=== PATIENT | female | born 1980 | race Caucasian/White ===

== ENCOUNTER 2024-09-24 09:18 | Outpatient (OUT) | payer BC, SELFPAY ==
[2024-09-24 09:55] LABS: Basophils Percent Auto 0.6 % (0.2-2.0); Eosinophils Absolute Auto 0.1 10^3/uL (0.0-0.7); Eosinophils Percent Auto 1.9 % (0.9-7.0); Hematocrit 44.1 % (36.0-48.0); Hemoglobin 14.7 g/dL (12.0-16.0); Immature Granulocytes Abs Auto 0.02 10^3/uL (0.00-0.03); Immature Granulocytes Pct Auto 0.3 % (0.0-0.5); Lymphocytes Absolute Auto 2.4 10^3/uL (1.2-3.8); Lymphocytes Percent Auto 34.5 % (20.5-60.0); Mean Corpuscular HGB Conc 33.3 g/dL (29.9-35.2); Mean Platelet Volume 10.5 fL (9.5-13.5); Monocytes Absolute Auto 0.5 10^3/uL (0.3-0.8); Monocytes Percent Auto 6.6 % (1.7-12.0); Neutrophils Absolute Auto 3.8 10^3/uL (1.4-6.5); Neutrophils Percent Auto 56.1 % (43.0-75.0); Platelet Count 273 10^3/uL (150-450); Red Blood Count 4.74 10^6/uL (4.20-5.40); Red Cell Distribution Width 13.3 % (11.0-15.0); White Blood Count 6.8 10^3/uL (4.0-11.0)
[2024-09-24 11:35] LABS: Alanine Aminotransferase 38 U/L (14-59); Albumin Level 3.6 g/dL (3.4-5.0); Alkaline Phosphatase 74 U/L (46-116); Anion Gap 10.3; Aspartate Amino Transferase 19 U/L (15-37); BUN Creatinine Ratio 12.4; Bilirubin Total 1.4 mg/dL (0.2-1.0); Calcium 8.8 mg/dL (8.5-10.1); Carbon Dioxide 28.7 mmol/L (21.0-32.0); Chloride 107 mmol/L (98-107); Cholesterol 192 mg/dL (<=200); Estimated GFR (African America >60 (>=60 mL/min/1.73m^2); Estimated GFR (Non-African Ame >60 (>=60 mL/min/1.73m^2); Globulin 3.5 g/dL; Glucose 104 mg/dL (74-106); HDL Cholesterol 48 mg/dL (40-60); LDL Cholesterol Calculated 121.8 mg/dL; Sodium 142 mmol/L (136-145); TSH W/ REFLEX FT4 2.063 uIU/mL (0.358-3.740); Total Protein 7.1 g/dL (6.4-8.2); Triglycerides 111 mg/dL (<=150); VLDL CHOLESTEROL 22.2 mg/dL
== END 2024-09-24 09:19 | disposition home or self-care (01) ==
PROVIDERS: PCP Physician Assistant; Visit Provider Physician Assistant
DX: Z00.00 Encounter for general adult medical examination without abnormal findings (principal); K51.00 Ulcerative (chronic) pancolitis without complications; R63.5 Abnormal weight gain
CPT/HCPCS: 36415; 80053; 80061; 84443; 85025

== ENCOUNTER 2025-05-24 12:18 | Outpatient (OUT) | payer BC, SELFPAY ==
--- OUTSIDE RECORDS SUMMARY | 2025-05-15 16:15 | XMS_ITS | Encounter Summary ---
Author Organization [facility] Healthcare Address [address] [place] [address] Care Team Providers Care Transit Police Officer Name Role Phone Cory Ortega MD Primary Care Provider [phone] Reason for Visit * ReasonCommentsFollow-upPt is here today for Fuv Rt ankle pain, she states swelling has improved, she has good days and baddays. She does not like the ASO, feels too tight around ankle area, but too bunched up in the heel area. Completed the oral steroid without issues, but was unable to take the anti- inflammatory due toupset stomach and blood in stool, caused colitis flare. SS: 10 Encounter Details DateTypeDepartmentCare Team (Latest Contact Info)Ywscpgevqra70/13/2025 4:15 PM EDTOffice Visit [facility] [address] [place] [phone] Jose Martin Stanley, DPM [address] [place], [place] [phone] Posterior tibial tendon dysfunction, right (Primary Dx); Posterior tibial tendinitis of right lower extremity; Other synovitis and tenosynovitis, right ankle and foot; Onychomycosis; Right foot pain Social History Tobacco UseTypesPacks/DayYears UsedDateSmoking Tobacco: FormerCigarettes0.520 2021 - 1991Smokeless Tobacco: Never Tobacco Cessation:Counseling Given: Not Answered Comments:Last smoked : 1-5 years Alcohol UseStandard Drinks/WeekCommentsYes2 (1 standard drink = 0.6 oz pure alcohol)Caffeine intake : 1-2 cups per day [id number] Health LiteracyAnswerDate RecordedHow often do you need to have someone help you when you read instructions, pamphlets, or other written material from your doctor or pharmacy? Never09/16/2024Humiliation, Afraid, Rape, and Kick questionnaireAnswerDate RecordedWithin the last year, have you been afraid of your partner or ex-partner?No04/21/2023Within the last year, have you been humiliated or emotionally abused in other ways by your partner or ex-partner?No04/21/2023 Within the last year, have you been kicked, hit, slapped, or otherwise physically hurt by your partner or ex-partner?No04/21/2023Within the last year, have you been raped or forced to have any kind of sexual activity by your part ner or ex-partner?No04/21/2023Social Connection and Isolation PanelAnswerDate RecordedIn a typical week, how many times do you talk on the phone with family, friends, or neighbors?Twice a week09/16/2024How often do you get together with friends or relatives?Once a week09/16/2024How often do you attend yazdanism or congregational services?Never09/16/2024Do you belong to any clubs or organizations such as yazdanism groups, unions, fraternal or athletic groups, or school groups?No 09/16/2024How often do you attend meetings of the clubs or organizations you belong to?Patient nvmdfyeh43/14/2025re you , , , , never , or living with a partner?Nhmjsml0709/16/2024UDIT-C AnswerDate RecordedQ1: How often do you have a drink containing alcohol?2-4 times a month09/20/2024Q2: How many drinks containing alcohol do you have on a typical day when you are drinking?1 or Q3: How often do you have six or more drinks on one occasion?Never09/20/2024Overall Financial Resource Strain (CARDIA)AnswerDate RecordedHow hard is it for you to pay for the very basics like food, housing, medical care, and heating?Not hard at all09/16/2024PHQ-2 AnswerDate RecordedPatient Health Questionnaire-2 [facility]byu058Final[facility] [place] of Occupational Health - Occupational Stress QuestionnaireAnswerDate RecordedDo you feel stress - tense, restless, nervous, or anxious, or unable to sleep at night because yourmind is troubled all the time - these days?Very much 09/16/2024Exercise Vital SignAnswerDate RecordedOn average, how many days per week do you engage in moderate to strenuous exercise (like a brisk walk)?2 days 09/16/2024On average, how many minutes do you engage in exercise at this level? 20 min09/16/2024Hunger Vital SignAnswerDate RecordedWithin the past 12 months, you worried that your food would run out before you got the money to buymore. Never true09/16/2024Within the past 12 months, the food you bought just didn't last and you didn't have money to get more.Never true09/16/2024PRAPARE - TransportationAnswerDate RecordedIn the past 12 months, has lack of transportation kept you from medical appointments or from getting medications?No 09/16/2024In the past 12 months, has lack of transportation kept you from meetings, work, or from getting things needed for daily living?No09/16/2024 Housing Stability Vital SignAnswerDate RecordedIn the last 12 months, was there a time when you were not able to pay the mortgage or rent on time?No04/21/2023In the last 12 months, how many places have you lived?In the last 12 months, was there a time when you did not have a steady place to sleep or slept in [facility] (including now)?No04/21/2023Housing Stability Vital SignAnswerDate RecordedIn the last 12 months, was there a time when you were not able to pay the mortgage or rent on time?No09/16/2024Number of Times Moved in the Last Year Not on file09/16/2024t any time in the past 12 months, were you homeless or living in a [place] (including now)?No09/16/2024CommentsUnknownSex and Gender InformationValueDate RecordedSex Assigned at OgswtCbqygm38/06/2023 9:15 AM EDTLegal ItePfpppm19/15/2023 7:22 PM EDTGender HeslhmbkVjimgc68/06/2023 9:15 AM EDTSexual YzrjdhizjubDeodrvzk20/06/2023 9:15 AM EDTdocumented as of this encounter Last Filed Vital Signs Vital SignReadingTime TakenCommentsBlood Pressure--Pulse--Temperature-- Respiratory Rate--Oxygen Saturation--Inhaled Oxygen Concentration--Ipldcl468 kg (251 lb)05/15/2025 4:09 PM CZJEiiqia432.7 cm (5' 8 )05/15/2025 4:09 PM EDTBody Mass Index38.161 4:09 PM EDTdocumented in this encounter Progress Notes * Jose Martin Senait Stanley, DPM - 05/15/2025 4:15 PM EDT Images from the original note were not included. Subjective Patient ID: Bharati Valerio is a 45 y.o. female who presents for Follow-up (Pt is here today for Fuv Rt ankle pain, she states swelling has improved, she has good days and bad days. She does not like the ASO, feels too tight around ankle area, but too bunched up in the heel area. Completed the oral steroid without issues, but was unable to take the anti-inflammatory due to upset stomach and blood in stool, caused colitis flare. /SS: 10). HPI This is an established patient who presents to clinic for follow up evaluation of posterior tibial tendinopathy in the setting of valgus deformity of the right lower extremity. Patient has been usingan ASO brace consistently for about a month. She states it is very uncomfortable to wear because itcauses a lot of restriction with her ankle and foot. Patient states that overall her symptoms have improved but some days she has continued severe pain. Additionally patient is concerned about possible nail fungus primarily affecting the right hallux. It has been present for years. She has tried various topical options without improvement. Review of Systems Constitutional: Positive for activity change. Negative for appetite change. Respiratory: Negative for chest tightness and shortness of breath. Cardiovascular: Negative for chest pain. Musculoskeletal: Positive for arthralgias and gait problem. Skin: Negative for color change and wound. Neurological: Negative for weakness and numbness. Psychiatric/Behavioral: Negative for agitation and behavioral problems. Hematological: Does not bruise/bleed easily. Endocrine: Negative for cold intolerance and heat intolerance. Allergic/Immunologic: Negative for immunocompromised state. Past medical History Past Medical History: Diagnosis Date Afib ([facility]) 04/22/2023 Anxiety Arthritis Carpal tunnel syndrome 06/02/2019 Cervical ca ([facility]) 04/22/2023 Colitis Depression Elevated LDL cholesterol level Headache History of MRI 08/14/2020 MRI of foot shows plantar facsiltis Tear of meniscus of knee 1997, 2005 Urinary tract infection Medications Current Outpatient Medications: Ibuprofen-Acetaminophen 125-250 MG tablet per tablet, Take 1 tablet by mouth every 8 (eight) hours if needed (Pain), Disp: , Rfl: predniSONE (Deltasone) 10 MG tablet, Take twice daily for 5 days, then take once daily for 5 days.,Disp: 15 tablet, Rfl: 0 Allergies Topiramate and Daypro [oxaprozin] Past Surgical History Past Surgical History: Procedure Laterality Date ANTERIOR CRUCIATE LIGAMENT REPAIR BACK SURGERY CERVICAL BIOPSY W/ LOOP ELECTRODE EXCISION SECTION, LOW TRANSVERSE [id number] CHOLECYSTECTOMY COLONOSCOPY 02/27/2021 COLONOSCOPY KNEE SURGERY Right RT KNEE ACL- DR NINO KNEE SURGERY Right DR FAULKNER LUMBAR DISC SURGERY 2011 DR SARMIENTO Family History Family History Problem Relation Name Age of Onset Polycystic ovary syndrome Daughter Bipolar disorder Daughter ADD / ADHD Daughter PTSD Daughter Objective Physical Exam Constitutional: Appearance: She is obese. Comments: Presents to clinic ambulating unassisted with ASO brace on the right foot. HENT: Head: Normocephalic and atraumatic. Cardiovascular: Pulses: Normal pulses. Pulmonary: Effort: Pulmonary effort is normal. No respiratory distress. Abdominal: Palpations: There is no mass. Musculoskeletal: Cervical back: No rigidity. Comments: Weightbearing examination reveals pes planovalgus deformity. She is able to perform a double heel rise test which invert the hindfoot. Right foot: Today there is some tenderness to palpation of the plantar naviculocuneiform joint. I can not recreate any tenderness to palpation over the posterior tibial tendon and spring ligament. Inversion, eversion of the subtalar joint minimally painful with forced inversion. No deltoid tenderness. Muscle strength 4/5 for inversion, 5/5 for remaining quadrants. Ankle dorsiflexion-5 degrees with the knee extended, flexed. Increased excursion of the 1st ray especially with dorsiflexion. Very mild medial eminence with very slight lateral deviation of the hallux. Prominent dorsal medial osteophyte over the 1st metatarsal. Skin: Capillary Refill: Capillary refill takes less than 2 seconds. Findings: No lesion or rash. Comments: Right hallux exhibit total dystrophic mycosis encompassing approximately 90 percent of the nail. There is yellow discoloration, crumbly texture, subungual debris with dermatophytic spiking.Slightly tender with manipulation. Neurological: Mental Status: She is alert. Comments: No loss of protective sensation, gross sensation intact. Psychiatric: Mood and Affect: Mood normal. Behavior: Behavior normal. 03/21/2025: Three views of the right ankle are nonweightbearing with [facility]. No fractures or dislocations. Large enthesophyte at the insertion of the plantar fascia. 04/04/2025: MRI of the right ankle from [facility] reveals significant tendinosis of the posterior tibialtendon with split tearing along the medial midfoot region. Mild peroneus longus tendinosis noted. Deltoid ligament intact. Assessment/Plan ICD-10-CM 1. Posterior tibial tendon dysfunction, right M76.821 2. Posterior tibial tendinitis of right lower extremity M76.821 predniSONE (Deltasone) 10 MG tablet 3. Other synovitis and tenosynovitis, right ankle and foot M65.871 4. Onychomycosis B35.1 ALT AST 5. Right foot pain M79.671 Patient examined and evaluated. Reviewed previous radiographs and MRI. At this point she really hasno tenderness over the posterior tibial tendon or deltoid ligament. She does have some minor tenderness along the plantar naviculocuneiform joint. Again this is all in the setting of pes planovalgus i nstability and deformity. Discussed treatment options going forward. At this time we will transition her out of the ASO brace. She will move forward with physical therapy exercises and prefers to do a home exercise program. She will complete the program daily as instructed. Recommend repeating the oral steroidTaper as she continues to have a lot of significant tenderness on a regular basis. She was unable to tolerate the meloxicam. Lastly I recommend continuing to use supportive shoes and powerstep orthotics. Patient was fitted for and dispensed new power step orthoses today. Avoid barefoot walking in flats. Follow up in 6 weeks. If symptoms persist consider surgical intervention. Clinically patient seems to have onychomycosis and I discussed causes and treatment options. Treatment options were laid out including observation versus periodic debridement versus topical or oral antifungals. Additionally I have discussed chemical matrixectomy. At this time the patient elects for oral antifungal therapy. A clean nail nipper was utilized to take a sample of the affected right hallux toenail and sent for pathological examination, fungal stain, and culture to guide antifungal therapy. A nail nipper and electric bur precision grinder were also utilized to debride the affected nails to help reduce fungal load and to palliate the symptomatic nails. I will review the nail specimen and ifthere is fungal disease present she will obtain lab work at [facility]. She was given an order requisition for this today. When I receive these results I will prescribe oral antifungal therapyif appropriate. This note was created with the assistance of a speech recognition program. While intending to generate a timely document that accurately reflects the content of the visit, no guarantee can be provided that every grammatical or spelling mistake has been or will be identified or corrected. Thank you for your understanding. Jose Martin Stanley DPM documented in this encounter Plan of Treatment DateTypeDepartmentCare Team (Latest Contact Info)Cmhzjfspmkk73/01/2025 4:15 PM ESTOffice Visit [facility] [address] [place] [phone] Jose Martin Stanley DPM [address] [place] [address] NameTypePriorityAssociated DiagnosesOrder ScheduleALTLabRoutine Onychomycosis Ordered: 05/15/2025STLabRoutine Onychomycosis Ordered: 05/15/2025documented as of this encounter Visit Diagnoses Diagnosis Posterior tibial tendon dysfunction, right- Primary Posterior tibial tendinitis of right lower extremity Other synovitis and tenosynovitis, right ankle and foot Onychomycosis Dermatophytosis of nail Right foot pain Pain in soft tissues of limb documented in this encounter Care Teams Team MemberRelationshipSpecialtyStart DateEnd Date Cory Ortega MD [address] [address] PCP - General02/05/23documented as of this encounter
--- OUTSIDE RECORDS SUMMARY | 2025-05-24 12:26 | XMS_ITS | Encounter Summary ---
Author Organization [facility] Address [address] [place] [address] Care Team Providers Care Meal Packer Name Role Phone Cory Ortega MD Primary Care Provider [phone] Encounter Details DateTypeDepartmentCare Team (Latest Contact Info)Plwfwziroet72/13/2025Travel Social History Tobacco UseTypesPacks/DayYears UsedDateSmoking Tobacco: FormerCigarettes0.520 2021 - 1991Smokeless Tobacco: Never Comments:Last smoked : 1-5 y ears Alcohol UseStandard Drinks/WeekCommentsYes2 (1 standard drink = 0.6 oz pure alcohol)Caffeine intake : 1-2 cups per day [id number] Health LiteracyAnswerDate RecordedHow often do you need [...] relatives?Once a week09/16/2024How often do you attend hinduism or buddhism services?Never09/16/2024Do you belong to any clubs or organizations such as hinduism groups, unions, fraternal or athletic groups, or school groups?No 09/16/2024How often do you attend meetings of the clubs or organizations you belong to?Patient qdofyfao24/14/2025re you , , , , never , or living with a partner?Gjzzmwl0709/16/2024UDIT-C AnswerDate RecordedQ1: How often do you have [...] hard at all09/16/2024PHQ-2 AnswerDate RecordedPatient Health Questionnaire-2 Oaevn495Fin[facility] [place] of Occupational Health - Occupational Stress QuestionnaireAnswerDate [...] you didn't have money to get more.Never true02/14/2025PRAPARE - TransportationAnswerDate RecordedIn the past 12 months, [...] steady place to sleep or slept in ashelter (including now)?No04/21/2023Housing Stability Vital SignAnswerDate RecordedIn the last 12 months, was there a time when you were not able to pay the mortgage or rent on time?No09/16/2024Number of Times Moved in the Last Year Not on file09/16/2024t any time in the past 12 months, were you homeless or living in a care home (including now)?No09/16/2024CommentsUnknownSex and Gender InformationValueDate RecordedSex Assigned at BbnazKycgmc74/06/2023 9:15 AM EDTLegal MbjEfdato90/15/2023 7:22 PM EDTGender BcidjxmqBnmzeg28/06/2023 9:15 AM EDTSexual NnqpckddjouKbwundim74/06/2023 9:15 AM EDTdocumented as of this encounter Plan of Treatment DateTypeDepartmentCare Team (Latest Contact Info)Iimdobqldmc13/01/2025 4:15 PM ESTOffice Visit [facility] [address] [place] [address] Jose Martin Stanley DPM [address] [place] [address] documented as of this encounter Visit Diagnoses Not on filedocumented in this encounter Care Teams Team MemberRelationshipSpecialtyStart DateEnd Date Cory Ortega MD [address] [place] [address] PCP - General02/05/23documented as of this encounter
--- OUTSIDE RECORDS SUMMARY | 2025-05-24 12:26 | XMS_ITS | Clinical Summary ---
Author Organization [employer] tem Address [id number] [address] [place] [address] Care Team Providers Care Cryptologic Supervisor Name Role Phone Cory Ortega MD Primary Care Provider [phone] Allergies Active AllergyReactionsCriticalityNoted DateCommentsTopiramateAnaphylaxisHigh 06/15/2024 Medications MedicationSigDispense QuantityRefillsLast FilledStart DateEnd DateStatus ibuprofen-acetaminophen (MOTRIN DUAL ACTION W-TYLENOL) 125-250 mg tablet Take by mouth every 8 (eight) hours.Active phentermine (ADIPEX-P) 37.5 mg tablet TAKE 1 TABLET BY MOUTH IN THE MORNING BEFORE MEALSActive qzeteldw-mevahpboy-PD (CORTISPORIN) 3.5-10,000-1 mg/mL-unit/mL-% otic suspension instill 3 (THREE) DROP into the affected EAR IN THE MORNING, noon, IN THE EVENING, and BEFORE bedtime FOR 7 DAYS5Active mirabegron (MYRBETRIQ) 50 mg tablet extended release 24 hr Take 1 tablet (50 mg total) by mouth in the morning. 30 tablet 5Active estradioL (ESTRACE) 0.01 % (0.1 mg/gram) vaginal cream Insert 0.5 g into the vagina nightly. Nightly for the first 4 weeks, then just twice weekly thereafter. 42.5 g 5Active Active Problems ProblemNoted DateDiagnosed DateBipolar 1 cdigivur27/16/4273Gizbrpxwmt16/16/2024 Primary osteoarthritis of right knee4Acquired equinus deformity of foot 04/22/2023Afib04/22/20233208Rtuftqguue46/20/8437Kkbsipolu16/20/2023hronic headaches 04/22/2023Hallux valgus (acquired), left foot04/22/2023OAB (overactive bladder) 04/22/2023Ulcerative vypronfgra11/20/2023Urinary fhvwldqdipzz52/20/2023arpal tunnel wenpnvud53/31/2019Morbid obesity due to excess mptwkslu97/16/2019 Posttraumatic stress yurovxwv29/23/2019 Family History Medical HistoryRelationNameCommentsAlcohol abuseMotherJuanitaRelationNameStatus CommentsMotherJuanita Social History Tobacco UseTypesPacks/DayYears UsedDateSmoking Tobacco: Every DayCigarettes Started: 08/03/1991Vaping/E-cigarettesSmokeless Tobacco: NeverAlcohol Use Standard Drinks/WeekCommentsYes2 (1 standard drink = 0.6 oz pure alcohol) ChildcareAnswerDate JcvhislmIdfccpxcpGysiygp29/12/2019EmploymentAnswerDate QsuqwdvyKllhnmvvptIyfwioi49/12/2019Hunger ScreeningAnswerDate RecordedWithin the past 12 months we worried whether our food would run out before we got money to buy more.Never True10/26/2024Within the past 12 months the food we bought just didn't last and we didn't have money to get more.Never True10/26/2024Purpose - LifeAnswerDate RecordedPurpose and direction in haolPvscean04/11/2021 CommentsNoSex and Gender InformationValueDate RecordedSex Assigned at BirthNot on fileLegal KkfSowpbg45/06/2015 12:03 PM EDTGender IdentityNot on fileSexual OrientationNot on file Last Filed Vital Signs Vital SignReadingTime TakenCommentsBlood Qehigzmy998/8710/26/2024 9:46 AM EDT Dtyxi981410/26/2024 9:46 AM JOAYczjbabtmkx32.8 ??C (98.2 ??F)03/28/2019 9:09 AM EDTRespiratory Tegm750009/14/2024 1:01 PM ESTOxygen Xjdtjpvxrf839%09/14/2024 1:01 PM ESTInhaled Oxygen Concentration--Luencw252.8 kg (253 lb)10/26/2024 9:46 AM FOUUviivh195.7 cm (5' 8 )10/26/2024 9:46 AM EDTBody Mass Index38.47010/26/2024 9:46 AM EDT Plan of Treatment Health MaintenanceDue DateLast DoneCommentsTobacco Ithjyhbwuk1980 Depression Qftghfoxx55/04/1992Adult BMI Follow Up Plan01/04/1998DTaP,Tdap and Td Vaccines (1 - Tdap)01/04/1999Pap Smear01/04/2001Influenza Qkgnpjq3304/03/2025 06/14/2019, 06/14/2019, 05/24/2018, Additional history existsAdult BMI Screening Tobacco Bpbsufoex61 Medical Devices Not on file Insurance * Guarantor: Bharati Valerio TypeRelation to PatientDate of PhoneBilling TowbcnxYrgwwbGqhh1980 [address] [place] [address] Care Teams Team MemberRelationshipSpecialtyStart DateEnd Date [place] [address] [place] [address] PCP - GeneralFamily Abbduccu84/14/19
--- OUTSIDE RECORDS SUMMARY | 2025-05-24 12:26 | XMS_ITS | Encounter Summary ---
Author Organization [facility] Address [address] [place] [address] Care Team Providers Care Video Player Mechanic Name Role Phone Cory Ortega MD Primary Care Provider [phone] Encounter Details DateTypeDepartmentCare Team (Latest Contact Info)Fsbwidabfbo35/13/2025amboo flowsheet [facility] [address] [place] [phone] Jose Martin Stanley DPJuani [address] [place] [address] Social History Tobacco UseTypesPacks/DayYears UsedDateSmoking Tobacco: FormerCigarettes0.520 2021 - 1991Smokeless Tobacco: Never Comments:Last smoked : 1-5 y ears Alcohol UseStandard Drinks/WeekCommentsYes2 (1 standard drink = 0.6 oz pure alcohol)Caffeine intake : 1-2 cups per day opdfmgF7594 Health LiteracyAnswerDate RecordedHow often do you need [...] relatives?Once a week09/16/2024How often do you attend islam or quaker services?Never09/16/2024Do you belong to any clubs or organizations such as islam groups, unions, fraFlatpebble or athletic groups, or school groups?No 09/16/2024How often do you attend meetings of the clubs or organizations you belong to?Patient luulomcj42/14/2025re you , , , , never , or living with a partner?Kyowdyx3709/16/2024UDIT-C AnswerDate RecordedQ1: How often do you have [...] hard at all09/16/2024PHQ-2 AnswerDate RecordedPatient Health Questionnaire-2 Qyyvq882Fin[facility] [place] of Occupational Health - Occupational Stress QuestionnaireAnswerDate [...] steady place to sleep or [facility] (including [facility])?No04/21/2023Housing Stability Vital SignAnswerDate RecordedIn the last 12 months, was there a time when you were not able to pay the mortgage or rent on time?No09/16/2024Number of Times Moved in the Last Year Not on file09/16/2024t any time in the past 12 months, were you homeless or living in a intermediate (including now)?No09/16/2024CommentsUnknownSex and Gender InformationValueDate RecordedSex Assigned at VlselKekqqw76/06/2023 9:15 AM EDTLegal CreSarito22/15/2023 7:22 PM EDTGender PlgehsntCjufhd41/06/2023 9:15 AM EDTSexual IhvbjstvkhdTyycykuj97/06/2023 9:15 AM EDTdocumented as of this encounter Plan of Treatment DateTypeDepartmentCare Team (Latest Contact Info)Feaczlvzftl01/01/2025 4:15 PM ESTOffice Visit [facility] [address] [place] [phone] Jose Martin Stanley DPM [address] [place] [address] documented as of this encounter Visit Diagnoses Not on filedocumented in this encounter Care Teams Team MemberRelationshipSpecialtyStart DateEnd Date Cory Ortega MD 112 [facility] [address] [place] [address] PCP - General02/05/23documented as of this encounter
--- OUTSIDE RECORDS SUMMARY | 2025-05-24 12:26 | XMS_ITS | Encounter Summary ---
Author Organization [facility] Address [address] [place] [address] Care Team Providers Care Heavy Equipment Service Technician Name Role Phone Cory Ortega MD Primary Care Provider [phone] Encounter Details DateTypeDepartmentCare Team (Latest Contact Info)Fjxseilnjkn18/20/2025Orders Only [facility] [address] [place] [address] Jose Martin Stanley DPJuani [address] [place] [address] Social History Tobacco UseTypesPacks/DayYears UsedDateSmoking Tobacco: FormerCigarettes0.520 2021 - 1991Smokeless Tobacco: Never Comments:Last smoked : 1-5 y ears Alcohol UseStandard Drinks/WeekCommentsYes2 (1 standard drink = 0.6 oz pure alcohol)Caffeine intake : 1-2 cups per day [id number] Health LiteracyAnswerDate RecordedHow often do you need [...] relatives?Once a week09/16/2024How often do you attend adventism or adventist services?Never09/16/2024Do you belong to any clubs or organizations such as adventism groups, unions, fraImpression Technologies or athletic groups, or school groups?No 09/16/2024How often do you attend meetings of the clubs or organizations you belong to?Patient emmnznkp83/14/2025re you , , , , never , or living with a partner?Gezhsix7609/16/2024UDIT-C AnswerDate RecordedQ1: How often do you have [...] hard at all09/16/2024PHQ-2 AnswerDate RecordedPatient Health Questionnaire-2 Capbq246Finuintah basin medical center [place] of Occupational Health - Occupational Stress QuestionnaireAnswerDate [...] steady place to sleep or slept in [place] (including now)?No04/21/2023Housing Stability Vital SignAnswerDate RecordedIn the last 12 months, was there a time when you were not able to pay the mortgage or rent on time?No09/16/2024Number of Times Moved in the Last Year Not on file09/16/2024t any time in the past 12 months, were you homeless or living in a fdc (including now)?No09/16/2024CommentsUnknownSex and Gender InformationValueDate RecordedSex Assigned at VwaxnSiumqw93/06/2023 9:15 AM EDTLegal SqpWxdmny20/15/2023 7:22 PM EDTGender KdlconghPpouyr17/06/2023 9:15 AM EDTSexual YstfctiuqebJbjjtesx79/06/2023 9:15 AM EDTdocumented as of this encounter Plan of Treatment DateTypeDepartmentCare Team (Latest Contact Info)Lhnljvlaqea66/01/2025 4:15 PM ESTOffice Visit [facility] [address] [place] [address] Jose Martin Stanley, DPM [address] [place] [id number] documented as of this encounter Procedures Procedure NamePriorityDate/TimeAssociated DiagnosisCommentsFUNGUS CULTURERoutine 05/22/2025 4:57 PM EDTdocumented in this encounter Results * (ABNORMAL) Fungus culture (05/22/2025 4:57 PM EDT)Specimen (Source)Anatomical Location / LateralityCollection Method / VolumeCollection TimeReceived Time BloodVenous blood specimen / Unknown Narrative Authorizing ProviderResult TypeResult StatusAnthniyah Stanley DPMLAB BLOOD ORDERABLESEdited Result - Final documented in this encounter Visit Diagnoses Not on filedocumented in this encounter Care Teams Team MemberRelationshipSpecialtyStart DateEnd Date Cory Ortega MD [address] [facility] [address] [place] [address] PCP - General02/05/23documented as of this encounter
--- OUTSIDE RECORDS SUMMARY | 2025-05-24 12:26 | XMS_ITS | Encounter Summary ---
Author Organization [facility] Address [address] [place] [address] Care Team Providers Care Glass Block Installer Name Role Phone Cory Ortega MD Primary Care Provider [phone] Encounter Details DateTypeDepartmentCare Team (Latest Contact Info)Kvhgnvjeces49/12/2025Travel Social History Tobacco UseTypesPacks/DayYears UsedDateSmoking Tobacco: FormerCigarettes0.520 2021 - 1991Smokeless Tobacco: Never Comments:Last smoked : 1-5 y ears Alcohol UseStandard Drinks/WeekCommentsYes2 (1 standard drink = 0.6 oz pure alcohol)Caffeine intake : 1-2 cups per day [id number] Health LiteracyAnswerDate RecordedHow often do you need [...] relatives?Once a week09/16/2024How often do you attend religion or buddhism services?Never09/16/2024Do you belong to any clubs or organizations such as religion groups, unions, fraternal or athletic groups, or school groups?No 09/16/2024How often do you attend meetings of the clubs or organizations you belong to?Patient odtaajfb63/14/2025re you , , , , never , or living with a partner?Rkamrhz2009/16/2024UDIT-C AnswerDate RecordedQ1: How often do you have [...] hard at all09/16/2024PHQ-2 AnswerDate RecordedPatient Health Questionnaire-2 Rzemg664Finblue mountain hospital [place] of Occupational Health - Occupational Stress QuestionnaireAnswerDate [...] were you homeless or living in a retirement (including now)?No09/16/2024CommentsUnknownSex and Gender InformationValueDate RecordedSex Assigned at RcrenNfwcce72/06/2023 9:15 AM EDTLegal DgzNeoqtl59/15/2023 7:22 PM EDTGender JvagveaaMkrkqv71/06/2023 9:15 AM EDTSexual KmzgqamkwvuVffltgom23/06/2023 9:15 AM EDTdocumented as of this encounter Plan of Treatment DateTypeDepartmentCare Team (Latest Contact Info)Tbbuggavwoy27/01/2025 4:15 PM ESTOffice Visit [facility] [address] [place] [address] Jose Martin Stanley DPM [address] [place] [address] documented as of this encounter Visit Diagnoses Not on filedocumented in this encounter Care Teams Team MemberRelationshipSpecialtyStart DateEnd Date Cory Ortega MD [address] [place] [address] PCP - General02/05/23documented as of this encounter
--- OUTSIDE RECORDS SUMMARY | 2025-05-24 12:26 | XMS_ITS | Encounter Summary ---
Author Organization [facility] Address [address] [place] [address] Care Team Providers Care Icing Coater Name Role Phone Cory Ortega MD Primary Care Provider [phone] Encounter Details DateTypeDepartmentCare Team (Latest Contact Info)Zbeothfzkdf44/21/2025Results Follow-Up [facility] [address] [place] [address] Jose Martin Stanley, DPJuani [address] [place] [address] Fungus culture Social History Tobacco UseTypesPacks/DayYears UsedDateSmoking Tobacco: FormerCigarettes0.520 2021 - 1991Smokeless Tobacco: Never Comments:Last smoked : 1-5 y ears Alcohol UseStandard Drinks/WeekCommentsYes2 (1 standard drink = 0.6 oz pure alcohol)Caffeine intake : 1-2 cups per day lbuhwwQ7312 Health LiteracyAnswerDate RecordedHow often do you need [...] week09/16/2024How often do you attend yazdanism or synagogue services?Never09/16/2024Do you belong to any clubs or organizations such as yazdanism groups, unions, fraAA Party or athletic groups, or school groups?No 09/16/2024How often do you attend meetings of the clubs or organizations you belong to?Patient vdjoiuum46/14/2025re you , , , , never , or living with a partner?Okiqtfq4009/16/2024UDIT-C AnswerDate RecordedQ1: How often do you have [...] hard at all09/16/2024PHQ-2 AnswerDate RecordedPatient Health Questionnaire-2 Dbwyr759Finst. [facility] hospital [place] of Occupational Health - Occupational Stress QuestionnaireAnswerDate [...] steady place to sleep or slept in [place] (including now)?No04/21/2023Housing Stability Vital SignAnswerDate RecordedIn the last 12 months, was there a time when you were not able to pay the mortgage or rent on time?No09/16/2024Number of Times Moved in the Last Year Not on file09/16/2024t any time in the past 12 months, were you homeless or living in a mcc (including now)?No09/16/2024CommentsUnknownSex and Gender InformationValueDate RecordedSex Assigned at WksjlXmlqvb48/06/2023 9:15 AM EDTLegal NiqRtlloo50/15/2023 7:22 PM EDTGender IpaqgvsnReebmu21/06/2023 9:15 AM EDTSexual IfheqyuacwkPvlwixch83/06/2023 9:15 AM EDTdocumented as of this encounter Miscellaneous Notes * Telephone Encounter - Jose Martin Stanley DPM - 05/23/2025 8:58 AM EDT Reviewed patient's fungal culture which is consistent with onychomycosis. Please call patient and have her get lab work done. She wishes to go to [facility] per my note and she should have thelab requisition order already with her. Thank you Lito. documented in this encounter Plan of Treatment DateTypeDepartmentCare Team (Latest Contact Info)Kzodqhjwiuu32/01/2025 4:15 PM ESTOffice Visit [facility] [address] [place] [address] Jose Martin Stanley DPM [address] [place], [place] [phone] documented as of this encounter Visit Diagnoses Diagnosis Onychomycosis- Primary Dermatophytosis of nail documented in this encounter Care Teams Team MemberRelationshipSpecialtyStart DateEnd Date Cory Ortega MD [address] [place] [address] PCP - General02/05/23documented as of this encounter
--- OUTSIDE RECORDS SUMMARY | 2025-05-24 12:26 | XMS_ITS | Clinical Summary ---
Author Organization [facility] Address [address] [place] [address] Care Team Providers Care Software Packaging Engineer Name Role Phone Cory Ortega MD Primary Care Provider [phone] Allergies Active AllergyReactionsCriticalityNoted DateCommentsOxaprozinGI intolerance 09/20/2024 ABD Pain, Constipation IvmaiokngrXiqvkmnxtylLkld87/13/2024 Medications MedicationSigDispense QuantityRefillsLast FilledStart DateEnd DateStatus Ibuprofen-Acetaminophen 125-250 MG tablet per tablet Take 1 tablet by mouth every 8 (eight) hours if needed (Pain)Active predniSONE (Deltasone) 10 MG tablet Indications:Posterior tibial tendinitis of right lower extremityTake twice daily for 5 days, then take once daily for 5 days. 15 tablet 05/15/2025tive predniSONE (Deltasone) 10 MG tablet Indications:Posterior tibial tendinitis of right lower extremityTake twice daily for 5 days, then take once daily for 5 days. 15 tablet Discontinued(Therapy completed) meloxicam (Mobic) 15 MG tablet Indications:Posterior tibial tendinitis of right lower extremityTake 1 tablet (15 mg) by mouth Daily for 21 days 21 tablet Expired Active Problems ProblemNoted DateDiagnosed DatePrimary vyjzqvzo12/15/2025History of cervical oenzxt1409/20/2024Post-evhcccnnrv58/18/2025Primary osteoarthritis of left knee 09/20/2024Primary osteoarthritis of right knee05/18/20243472Iwfhpxofn88/20/2023 Chronic vgcdvoknn11/20/2023OAB (overactive bladder)04/22/2023Urinary aciirpcmnkan76/20/2023Ulcerative /20/2023Morbid obesity due to excess edlzjaob38/16/2019Bipolar aoensrtu93/23/2019Posttraumatic stress disorder 11/23/2018 Resolved Problems ProblemNoted DateDiagnosed DateResolved OfacSjcicjdmqn24 Acquired equinus deformity of footfib Cervical caHallux valgus (acquired), left foot04/22/2023 09/20/2024arpal tunnel xekaboba78 Encounters DateTypeDepartmentCare JnhjIujheeoueig71/21/2025Results Follow-Up [facility] [address] [place] [address] Jose Martin Stanley DPM Fungus ahhqxyi8805/22/2025Orders Only [facility] [address] [place] [address] Jose Martin Stanley DPM 05/15/2025 4:15 PM EDTOffice Visit [facility] [address] [place] [address] Jose Martin Stanley DPM Posterior tibial tendon dysfunction, right (Primary Dx); Posterior tibial tendinitis of right lower extremity; Other synovitis and tenosynovitis, right ankle and foot; Onychomycosis; Right foot pain05/15/2025amboo flowsheet [facility] [address] [place] [address] Jose Martin Stanley DPM 05/15/20255081Caratd16/12/0147Ftziec58/10/2025 10:15 AM EDTOffice Visit [facility] [address] [place] [address] Jose Martin Stanley DPM Posterior tibial tendon dysfunction, right (Primary Dx); Acute right ankle pain; Decreased range of motion of right ankle; Posterior tibial tendinitis of right lower extremity; Instability of right ankle joint; Difficulty walking; Equinus contracture of right ankle04/12/2025amboo flowsheet [facility] [address] [place] [address] Jose Martin Stanley, DPM 04/12/20258665Ugxpkj61/09/4230Guzwmn15/03/2025Results Follow-Up [facility] [address] [facility] [address] [place] [address] Margaret Henley PA MR ankle right wo IV wzrquktc21/02/2025 11:30 AM EDTAncillary Procedure [facility] [address] [facility] [place] [address] Acute right ankle pain; Paresthesia of right foot; Decreased range of motion of right ankle04/04/20253337Qawdyt57/01/2025Travel 03/22/2025Results [facility] [address] [facility] [address] [place] [address] Margaret Henley PA XR ankle 3+ views right03/21/2025 5:00 PM EDTAncillary Procedure [facility] [address] [facility] [address] [facility] [place] [address] Acute right ankle pain03/21/20253235Rdtjap20/18/2025 4:30 PM EDTOffice Visit [facility] [address] [facility] [address] [place] [address] Margaret Henley PA Acute right ankle pain (Primary Dx)03/20/2025amboo flowsheet [facility] [address] [facility] [address] [place] [address] Margaret Henley PA 03/20/20259869Nxbbfy48/25/2025 11:15 AM EDTOffice Visit [facility] [address] [place] [address] Jr. Pranav Martinez, DO Acute pain of right knee (Primary Dx); Acute pain of left knee; Primary osteoarthritis of right knee02/24/2025amb flowsheet [facility] [address] [place] [address] [address] [place] [address] Jr. Pranav Martinez, DO 02/24/2025Travelfrom Last 3 Months Immunizations ImmunizationAdministration DatesNext DueInfluenza, injectable, MDCK, preservative free, wgdzkldhsonx34/22/2018Influenza, injectable, quadrivalent, preservative free06/14/2019,05/29/2017Influenza, seasonal, injectable, preservative free05/25/2015 Family History Medical HistoryRelationNameCommentsADD / ADHDDaughterBipolar disorderDaughter PTSDDaughterPolycystic ovary syndromeDaughterRelationNameStatusCommentsDaughter Alive1 daughterFatherAliveMotherAlive Social History Tobacco UseTypesPacks/DayYears UsedDateSmoking Tobacco: FormerCigarettes0.520 2021Smokeless Tobacco: Never Tobacco Cessation:Counseling Given: Not Answered Comments:Last smoked : 1-5 years Alcohol UseStandard Drinks/WeekCommentsYes2 (1 standard drink = 0.6 oz pure alcohol)Caffeine intake : 1-2 cups per day tluotpX4174 Health LiteracyAnswerDate RecordedHow often do you need [...] relatives?Once a week09/16/2024How often do you attend restorationism or tenriism services?Never09/16/2024Do you belong to any clubs or organizations such as restorationism groups, unions, fraGP[employer] or athletic groups, or school groups?No 09/16/2024How often do you attend meetings of the clubs or organizations you belong to?Patient ixhaslox44/14/2025re you , , , , never , or living with a partner?Hyeckad3409/16/2024UDIT-C AnswerDate RecordedQ1: How often do you have [...] hard at all09/16/2024PHQ-2 AnswerDate RecordedPatient Health Questionnaire-2 Kvjyr147Finmountain view hospital [place] of Occupational Health - Occupational Stress QuestionnaireAnswerDate [...] steady place to sleep or slept in [place] (including now)?04/21/2023Housing Stability Vital SignAnswerDate RecordedIn the last 12 months, was there a time when you were not able to pay the mortgage or rent on time?No09/16/2024Number of Times Moved in the Last Year Not on file09/16/2024t any time in the past 12 months, were you homeless or living in a half-way (including now)?No09/16/2024CommentsUnknownSex and Gender InformationValueDate RecordedSex Assigned at LmkrhCtsiis25/06/2023 9:15 AM EDTLegal WpnQcvrvn45/15/2023 7:22 PM EDTGender MhzzmdglLgjcng48/06/2023 9:15 AM EDTSexual SnfpmprevzvFzejfxij50/06/2023 9:15 AM EDT Last Filed Vital Signs Vital SignReadingTime TakenCommentsBlood Unjswkyc856/7808 4:19 PM EDT Gxpzw022703/20/2025 4:19 PM EDTTemperature--Respiratory Vvwd993011/15/2024 8:00 AM EDTOxygen Naigvdzbrl030%03/20/2025 4:19 PM EDTInhaled Oxygen Concentration-- Rwsxxc919 kg (251 lb)05/15/2025 4:09 PM NGQJymcwd387.7 cm (5' 8 )05/15/2025 4:09 PM EDTBody Mass Index38.161 4:09 PM EDT Plan of Treatment DateTypeDepartmentCare Team (Latest Contact Info)Hghmjsizkvf84/01/2025 4:15 PM ESTOffice Visit [facility] [address] [place] [address] Jose Martin Stanley, DPM [address] [place], [place] [phone] Health MaintenanceDue DateLast DoneCommentsCT Azpshbxqrnnq1980FIT-DNA 1980FIT1980FOBT1980 1242Hrddnxquavvgw1980HPV/Cjjffo5101/04/2010 Tkbyhdfsf48/04/2020Influenza Vaccine (#1)5108/14/2018, 05/24/2018, 05/29/2017, Additional history existsCervical Cancer Lpjokgjba47/06/2028Pap Smear803/4984Ublildmdvig31/28//, 02/27/2021olorectal Cancer Pqhxuhmzf18/28/2031 Procedures Procedure NamePriorityDate/TimeAssociated DiagnosisCommentsFUNGUS CULTURERoutine 05/22/2025 4:57 PM EDTMR ANKLE RIGHT WO IV JREHGTKIKxpdktj94/02/2025 12:25 PM EDT Acute right ankle pain Paresthesia of right foot Decreased range of motion of right ankle XR ANKLE 3+ VIEWS MKURSPcjsfey46/19/2025 4:47 PM EDT Acute right ankle pain CPDQYSRSZVCQygzomt66/28/2021 12:00 PM EDT from Last 3 Months or Most Recently Relevant to Health Maintenance Results * (ABNORMAL) Fungus culture (05/22/2025 4:57 PM EDT)Specimen (Source)Anatomical Location / LateralityCollection Method / VolumeCollection TimeReceived Time BloodVenous blood specimen / Unknown Narrative Authorizing ProviderResult TypeResult StatusJose Martin Stanley DPMLAB BLOOD ORDERABLESEdited Result - Final * MR ankle right wo IV contrast (04/04/2025 12:25 PM EDT)Anatomical Region LateralityModalityLower Extremities, AnkleRightMagnetic ResonanceSpecimen (Source)Anatomical Location / LateralityCollection Method / VolumeCollection TimeReceived Time04/05/2025 9:10 AM EDT Impressions 04/05/2025 9:15 AM EDT Split tear of tibialis posterior tendon superimposed on moderate tendinosis. Mild peroneus longus tendinosis. ELECTRONICALLY SIGNED BY: Handy You DO Narrative 04/05/2025 9:15 AM EDT EXAM: MR ANKLE RIGHT WO IV CONTRAST HISTORY: Ankle pain and stiffness TECHNIQUE: Multisequence multiplanar MRI of the ankle was performed without ??contrast COMPARISON: Radiographs March 21, 2025 FINDINGS: Achilles tendon is intact. The visualized plantar fascia is intact and is without thickening or nodularity. The flexor hallucis longus, and flexor digitorum longus tendons are intact. Split tear of tibialis posterior tendon at the level of the talar neck for a length of approximately 3 cm superimposed on moderate tendinosis. Mild adjacent soft tissue edema. No space-occupying lesion within the tarsal tunnel. Peroneus longus and peroneus brevis tendons are intact. Mild peroneus longus tendinosis. Extensor tendons are intact. The anterior and posterior tibiofibular ligaments, anterior and posterior talofibular ligaments, and calcaneofibular ligament are intact. Superficial and deep fibers of the deltoid ligament are intact. ??Spring ligament is intact. Sinus tarsi fat is preserved. No well defined or measurable cartilage defect of the tibial plafond, talar dome, or subtalar joint. No ankle joint effusion. No evidence of fracture or stress reaction. Procedure Note Handy You DO - 04/05/2025 EXAM: MR ANKLE RIGHT WO IV CONTRAST HISTORY: Ankle pain and stiffness TECHNIQUE: Multisequence multiplanar MRI of the ankle was performedwithout contrast COMPARISON: Radiographs March 21, 2025 FINDINGS: Achilles tendon is intact. The visualized plantar fascia is intact and iswithout thickening or nodularity. The flexor hallucis longus, and flexor digitorum longus tendons areintact. Split tear of tibialis posterior tendon at the level of the talarneck for a length of approximately 3 cm superimposed on moderatetendinosis. Mild adjacent soft tissue edema. No space-occupying lesionwithin the tarsal tunnel. Peroneus longus and peroneus brevis tendons areintact. Mild peroneus longus tendinosis. Extensor tendons are intact. The anterior and posterior tibiofibular ligaments, anterior and posterior talofibular ligaments, and calcaneofibular ligament are intact.Superficial and deep fibers of the deltoid ligament are intact. Springligament is intact. Sinus tarsi fat is preserved. No well defined or measurable cartilage defect of the tibial plafond,talar dome, or subtalar joint. No ankle joint effusion. No evidence offracture or stress reaction. IMPRESSION: Split tear of tibialis posterior tendon superimposed on moderatetendinosis. Mild peroneus longus tendinosis. ELECTRONICALLY SIGNED BY: Handy You DO Authorizing ProviderResult TypeResult StatusMargaret Gloria [facility] Medical Centerpaul [facility] MRI PROCEDURES Final Result * XR ankle 3+ views right (03/21/2025 4:47 PM EDT)Anatomical RegionLaterality ModalityLower Extremities, AnkleRightRadiographic ImagingSpecimen (Source) Anatomical Location / LateralityCollection Method / VolumeCollection Time Received Time03/22/2025 3:32 PM EDT Impressions 03/22/2025 3:32 PM EDT No acute osseous abnormality. ELECTRONICALLY SIGNED BY: Handy You DO Narrative 03/22/2025 3:32 PM EDT EXAM: XR ANKLE 3+ VIEWS RIGHT COMPARISON: None available HISTORY: Ankle pain FINDINGS: 3 views of the ankle were obtained. FINDINGS: No acute fracture or dislocation. Ankle mortise is within normal limits. Talar dome is intact. Tinyosteophyte of the dorsal aspect of the navicular. Small plantar calcaneal enthesophyte. Soft tissues are within normal limits. Procedure Note Handy You DO - 03/22/2025 EXAM: XR ANKLE 3+ VIEWS RIGHT COMPARISON: None available HISTORY: Ankle pain FINDINGS: 3 views of the ankle were obtained. FINDINGS: No acute fracture or dislocation. Ankle mortise is within normal limits.Talar dome is intact. Tiny osteophyte of the dorsal aspect of thenavicular. Small plantar calcaneal enthesophyte. Soft tissues are withinnormal limits. IMPRESSION: No acute osseous abnormality. ELECTRONICALLY SIGNED BY: Handy You DO Authorizing ProviderResult TypeResult StatusMargaret Henley PAIMG XR PROCEDURES Final Result * Colonoscopy (02/27/2021 12:00 PM EDT)Anatomical RegionLateralityModality EndoscopySpecimen (Source)Anatomical Location / LateralityCollection Method / VolumeCollection TimeReceived Time02/27/2021 12:00 PM EDT Narrative 02/27/2021 12:00 PM EDT PERFORMED AT [facility] LOCATION:[id number] Moderate ulcerative pancolitis Procedure Note CONVERSION, GENERIC - 12/17/2022 PERFORMED AT [facility] LOCATION:[id number] Moderate ulcerative pancolitis Authorizing ProviderResult TypeResult StatusCory Ortega MDENDOSCOPY PROCEDURE ORDERABLESFinal Result from Last 3 Months or Most Recently Relevant to Health Maintenance Insurance Care Teams Team MemberRelationshipSpecialtyStart DateEnd Date Cory Ortega MD [address] [facility] [address] [place] [address] [facility]02/05/23
--- OUTSIDE RECORDS SUMMARY | 2025-05-24 12:26 | XMS_ITS | Clinical Summary ---
Author Organization [facility] Address [address] [place] [address], [address] [place] [address] Care Team Providers Care Basting Marker Name Role Phone Unavailable Primary Care Provider Unavailabl e Social History Tobacco UseTypesPacks/DayYears UsedDateSmoking Tobacco: Never Assessed CommentsUnknownSex and Gender InformationValueDate RecordedSex Assigned at Not on fileLegal XubErtbql27/10/2013 11:19 PM ESTGender IdentityNot on file Sexual OrientationNot on file Plan of Treatment Not on file
[2025-05-24 13:16] LABS: Alanine Aminotransferase 64 U/L (14-59); Aspartate Amino Transferase 26 U/L (15-37)
== END 2025-05-24 12:19 | disposition home or self-care (01) ==
LOC: LAB 12:21
PROVIDERS: PCP Physician Assistant; Visit Provider Podiatrist Foot & Ankle Surgery
DX: B35.1 Tinea unguium (principal)
CPT/HCPCS: 36415; 84450; 84460